=== PATIENT | female | born 1945 | race Caucasian/White ===

== ENCOUNTER → 2017-06-21 | Outpatient (CLI) | payer OTHER, MEDICARE | LOC: FIMAGING 13:00 | PROVIDERS: ATTEND Internal Medicine | DX: N64.4 Mastodynia (principal) | CPT/HCPCS: 76641; G0204 ==

== ENCOUNTER → 2019-01-10 | Outpatient (CLI) | payer OTHER, MEDICARE | LOC: FIMAGING 12:13 ==